=== PATIENT | female | born 1955 ===

== ENCOUNTER 2025-01-22 13:29 | Emergency (ER) | payer MEDICARE, SELFPAY ==
[2025-01-22 13:37] VITALS: BP 148/87
--- NOTE | 2025-01-22 14:54 | ED.GENMED ---
History of Present Illness
General
Chief Complaint: Head Injury
Source: patient and family
Time Seen by Provider: 01/22/25 14:44
History of Present Illness
History of Present Illness:
69-year-old female with past medical history of hypertension and previous cerebral aneurysm status post repair in 2019 presents to the emergency department for evaluation after she was walking up the stairs 4 days ago, tripped on the last step and
fell into a dresser in the hallway believing she struck her head and since that time has been having mild intermittent headaches and forgetfulness prompting family to bring her to the ER for further evaluation. Patient states her head feels similar
as to when she was diagnosed with aneurysm and had the repair performed. Family notes that since the aneurysm repair and following patient has had balance issues and frequent falls, recommended to use both a walker and a cane but patient is
hesitant to do so. Patient notes the rest of her balance issues and current presentation are mostly chronic but she was most concerned about the aneurysm itself.
Past History
Past History
ED Past Medical History: HTN, NIDDM and Other (Cerebral aneurysm)
ED Past Surgical History: Brain
Social History
Tobacco: Non-smoker
Alcohol: None
Drug: None
Living: with family
Review of Systems
Review of Systems
All Other Systems: ROS reviewed and negative except as documented in HPI and ROS
Phy Exam
Physical Exam
Physical Exam:
GENERAL: Alert , in no apparent distress
EYE: conjunctiva clear
Head: Normocephalic atraumatic
NECK: Supple,
ENT: mmm.
LUNGS: no acute respiratory distress
NEUROLOGICAL: Alert and oriented, ambulates with steady gait, no ataxia
SKIN: Warm and dry, skin intact.
MUSCULOSKELETAL: well perfused.
PSYCH: Normal and appropriate interaction.
Scores
Heart Failure Risk
Heart Failure Risk Score: Not Applicable
Heart Score for Chest Pain Patients
STEMI patient?: Not applicable
Withdrawal Assessment of Alcohol
Withdrawal Assessment Completed?: Not applicable
Course
Orders/Labs/Results
Orders:
Orders
01/22/25 13:43
CT Head W/o Iv Contrast Urgent
Comment:
Reason For Exam: head injury, history of aneurysm
Vital Signs
Initial and Last Documented VS:
Initial Vital Signs
Temp Pulse Resp BP Pulse Ox
98.0 F 83 18 148/87 98
01/22/25 13:37 01/22/25 13:37 01/22/25 13:37 01/22/25 13:37 01/22/25 13:37
Last Documented Vital Signs
Temp Pulse Resp BP Pulse Ox
98.0 F 83 18 148/87 98
01/22/25 13:37 01/22/25 13:37 01/22/25 13:37 01/22/25 13:37 01/22/25 13:37
MDM/Problems Addressed
Differential Diagnosis Includes:
Contusion, concussion, intracranial bleeding
MDM/Problems Addressed:
69-year-old female presenting to the ER for evaluation of headache and forgetfulness since a fall 4 days ago, family notes patient has had balance issues and falls ever since she has had an aneurysm repair 5 years ago. Patient has been recommended
to use a walker and cane but she is very hesitant to do so. Patient states the reason she came to the ER today was to have the aneurysm evaluated and to make sure everything is okay. I do suspect concussion as a possible if not likely diagnosis.
CT scan ordered. Disposition pending
Chronic conditions affecting care: Neurological disorder (Cerebral aneurysm status postrepair)
*Radiology
Radiology exam reviewed: radiology read reviewed
*Pulse Oximetry
Patient hypoxic: no
*Critical Care Note
Total Time (30-74mins, 75-104mins- exclusive of procedures): Not Applicable
Patient Management
Escalation/DeEscalation of care consider admission/obs:
Patient CT scan shows stable aneurysmal clipping. No intracranial pathology is identified otherwise. At this time patient is stable for discharge home. I encouraged the patient to use assistive device in order to help prevent falls going forward.
Patient will follow-up with her primary care provider. Aware of return precautions to the ER.
ED Attending Note
-
Portions of this chart may have been created with voice recognition software.� Occasional wrong word or��sound alike� substitutions may have occurred due to the inherent limitations of voice recognition software.
Discharge Plan
Departure
Patient Disposition: Home (Routine Discharge)
Date of Disposition: 01/22/25
Time of Disposition: 15:52
Patient with high blood pressure during this ER visit?: Yes
Discharge Problem:
Head injury
Instructions: Concussion, Adult (DC)
Referrals:
Ganesh Mireles MD [Family Provider] -
Interventions
Interventions:
*Risk Screen - Suicide Last Done: 01/22/25 13:37
*General Assessment Last Done: 01/22/25 13:37
*ED COVID-19 Vaccine History Last Done: 01/22/25 13:37
ED- Neurological Assessment Last Done: 01/22/25 14:54
ED-Skin Assessment Last Done: 01/22/25 14:54
Discharge Date and Time
Print Language: STATELESS
== END 2025-01-22 16:05 | disposition home or self-care (01) ==
LOC: EMR 13:29
PROVIDERS: EMERGENCY PHYSICIAN Emergency Medicine; FAMILY PHYSICIAN Student in an Organized Health Care Education/Training Program
DX: S09.90XA Unspecified injury of head, initial encounter (principal); W10.9XXA Fall (on) (from) unspecified stairs and steps, initial encounter; I10 Essential (primary) hypertension; E11.9 Type 2 diabetes mellitus without complications; Z86.79 Personal history of other diseases of the circulatory system
CPT/HCPCS: 99284; 70450